=== PATIENT | female | born 1940 | race Caucasian/White ===

== ENCOUNTER 2023-06-30 09:15 | Day surgery (SDC) | payer MEDICARE, SELFPAY ==
--- NOTE | 2023-06-30 | LES_PTH ---
PATIENT: ADAN WADE LOC: [facility] – [place] U#:[id number] AGE/SX: 82/F ROOM: RE06/30/[address]: Dr. Barbara Judge MD : 1940 BED: DIS: 06/30/2023 SPEC #: [id number] RECD: 06/30/23 11:42 STATUS: JUAN REIrish #: [id number] TRACEY: 06/30/23 00:[address]: Barbara Judge DEPT: SURGICAL PATHOLOGY RECD BY: Rayne Osullivan ENTERED: 06/30/23 12:41 SP TYPE: Lesion OTHR DR: Dr. 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 Skin lesion of jawline, excision: Squamous cell carcinoma excised in the planes examined. AM:tommy 06/30/2023 Case has been reviewed in consultation with Dr. Rausch who concurs with the above diagnosis. IDC:ASHUTOSH MICROSCOPIC DIAGNOSIS A. Skin lesion of jawline, excisional biopsy: Invasive moderately differentiated squamous cell carcinoma, completely excised. Extensive solar elastosis. See comment. B. Lesion right shoulder, excisional biopsy: Actinic keratosis with mild atypia with verrucous and seborrheic keratosis-like features, completely excised in the planes of sections examined. SJ:tommy 07/04/2023 COMMENT A. The tumor measures 0.5 x 0.2 cm (measured microscopically). It is <0.1 cm away from the closest deep margin. Focal perineural invasion is noted. Please make reference to previous specimen from [facility] ([id number]), right lower jaw with diagnosis of poorly differentiated carcinoma. MICROSCOPIC DESCRIPTION Slides are reviewed. GROSS DESCRIPTION A - Received fresh for frozen section diagnosis oriented on a gauze piece labeled with the patient's name is a specimen designated squamous cell carcinoma right jawline. The specimen consists of an ovoid piece of skin measuring 1.9 x 1.3 x 0.2 cm. The specimen is inked as follows: 12 to 3 o'clock - black, 3 to 6 o'clock - blue, 6 to 9 o'clock - green and 9 to 12 o'clock - yellow. The specimen is serially sectioned and submitted entirely for frozen section diagnosis in two cassettes. / ASHUTOSH:tommy 06/30/2023 B - Received in fixative is one container labeled with the patient's name and designated lesion right shoulder. The specimen consists of a piece of meraz-white skin measuring 0.6 x 0.5 x 0.3 cm. The specimen is inked, bisected and submitted entirely in one cassette. / ASHUTOSH:tommy 06/30/2023 TC:0 CPT: 97998 x2, 87468, 39416
[2023-06-30 09:36] VITALS: BP 103/76; PULSE 71; RESP 14; TEMP 36.8; O2SAT 96; BMI 27.1
[2023-06-30 10:49] VITALS: BP 120/70
--- NOTE | 2023-06-30 10:53 | PCM.HP.BLA ---
History and Physical Date of Admission: 06/30/23 The patient is examined and there are no changes to the H&P dated 06/13/23. She presents with a biopsy proven SCC of the right jawline and a lesion of her right shoulder. 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 Excision lesion right shoulder.
[2023-06-30 11:04] VITALS: BP 92/57; BP 92/58; O2SAT 94; O2SAT 96
[2023-06-30 11:27] VITALS: BP 92/57; BP 92/58; O2SAT 94; O2SAT 95; O2SAT 96; O2SAT 97
--- NOTE | 2023-06-30 12:05 | DCINST_ITS ---
Discharge Instructions Dressing / Incision Additional Dressing/Incision Instructions:: Keep your head elevated (recliner position) for the next 2-3 nights to reduce swelling and bruising. Take the oral antibiotic (Keflex) 2 x a day until finished. Try to keep the paper tape dry. Leave them intact until seen in the office. If the tape falls off, apply and change a bandaid daily. Follow Up Care Please Follow Up With: Barbara Judge MD When: in 1-2 weeks. Test Results: Test results from this visit will be discussed in further detail at your follow- up appointment, if applicable. Discharge Plan Admission Attending Provider: Barbara Judge Primary Care Provider: Gena Redd Discharge Orders/Prescriptions Prescriptions: New cephalexin 500 mg capsule 500 mg PO BID Qty: 10 0RF No Action clopidogrel 75 mg tablet 75 mg PO DAILY levothyroxine 75 mcg capsule 75 mcg PO DAILY pantoprazole 20 mg tablet,delayed release (DR/EC) 20 mg PO DAILY Januvia 50 mg tablet 50 mg PO DAILY alendronate [Fosamax] 70 mg tablet 70 mg PO QWEEK tolterodine 4 mg capsule,extended release 24hr 4 mg PO DAILY magnesium oxide 400 mg magnesium tablet 400 mg PO DAILY levetiracetam 500 mg tablet 500 mg PO BID psyllium husk [Fiber (psyllium husk)] 0.4 gram capsule 0.4 g PO DAILY carvedilol 6.25 mg tablet 6.25 mg PO BID Rx Instructions: must administer with a meal/food duloxetine 30 mg capsule,delayed release(DR/EC) 30 mg PO DAILY spironolactone 25 mg tablet 25 mg PO DAILY isosorbide mononitrate 30 mg tablet extended release 24 hr 30 mg PO DAILY multivitamin Tablet 1 tab PO DAILY ferrous sulfate 325 mg (65 mg iron) tablet 325 mg PO DAILY aspirin [Aspirin Childrens] 81 mg tablet,chewable 81 mg PO DAILY cetirizine 10 mg tablet 10 mg PO DAILY PRN atorvastatin 40 mg tablet 40 mg PO DAILY temazepam 30 mg capsule 30 mg PO QHS PRN insulin glargine [Basaglar KwikPen U-100 Insulin] 100 unit/mL (3 mL) insulin pen 10 unit subcut QPM lidocaine 5 % adhesive patch,medicated 1 patch topical DAILY Rx Instructions: leave on most painful area for up to 12 hrs nitroglycerin 0.2 mg/hr patch 24 hour 1 patch transdermal DAILY Rx Instructions: allow nitrate-free interval of approx. 10-12 hrs per 24-hour period Trelegy Ellipta 200-62.5-25 mcg blister with device 1 inh inhalation DAILY Referrals / Follow Up: Gena Redd MD [Primary Care Provider] - Disposition Disposition (needs filled in before D/C Order can be placed): Home, Self Care
--- NOTE | 2023-06-30 12:10 | PCM.OPRPT ---
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 Silva has a biopsy-proven SCC of the right jawline. She also has a hyperkeratotic lesion of the right shoulder. She presents for excision of the SCC with frozen section to assure complete excision as well as excision of the lesion of the right shoulder. The patient was brought to the operating room and placed on the operating room table in a slightly left lateral decubitus position. The right jawline and right shoulder are prepped and draped in the usual sterile fashion. 1% Xylocaine with epinephrine is used for local anesthetic. Following this, the SCC is excised and passed off the operative field maintaining orientation for pathology. Hemostasis is controlled with cautery. Pathology frozen section reveals clear margins and therefore the wound is closed with a running chromic suture. We then directed our attention to the lesion of the right shoulder and after this is anesthetized with 1% Xylocaine with epinephrine, the site is excised and passed off the operative field to be sent to pathology for permanent section. Hemostasis is controlled with cautery. The incision is then closed with a running chromic suture. Dermabond and Steri-Strips are placed on both sides. She tolerated the procedure well was taken to the recovery area in an awake and stable condition. Needle and sponge counts are correct. Complications None Admit VTE Documentation VTE Mechan Device Prophylaxis: None Reason prophylaxis not ordered:: Treatment Not Indicated
[2023-06-30 12:16] VITALS: BP 112/69; PULSE 66; RESP 16; TEMP 36.2; O2SAT 95
== END 2023-06-30 12:39 | disposition home or self-care (01) ==
LOC: SDC 09:17 → AC 09:21
PROVIDERS: PCP Family Medicine; Referring Provider Family Medicine; Visit Provider Plastic Surgery
PROC: (CPT 11643; principal; 2023-06-30 10:30)
DX: C44.329 Squamous cell carcinoma of skin of other parts of face (principal); D48.5 Neoplasm of uncertain behavior of skin; L57.0 Actinic keratosis; L82.1 Other seborrheic keratosis
CPT/HCPCS: 11643; 11401; 88305; 88331; 88332

== ENCOUNTER 2023-08-11 09:22 | Day surgery (SDC) | payer MEDICARE, SELFPAY ==
--- NOTE | 2023-08-11 | LES_PTH ---
PATHOLOGY RESULTS PATIENT: ADAN WADE LOC: [facility] – [place] U#:[id number] AGE/SX: 82/F ROOM: RE08/11/[address]: Dr. Barbara Judge MD : 1940 BED: DIS: 08/11/2023 SPEC #: [id number] RECD: 08/11/23 12:30 STATUS: FABIANAJuancarlos CAMACHO #: [id number] TRACEY: 08/11/23 00:[address]: Barbara Judge DEPT: SURGICAL PATHOLOGY RECD BY: Rayne Osullivan ENTERED: 08/11/23 13:22 SP TYPE: Lesion Tissues: Skin of face, NOS Procedures: Frozen Section (charge) Frozen Section [facility]) Surgery Specimen Level IV HEADER OPERATION: Excision squamous cell carcinoma right jaw with frozen section PRE-OP DIAGNOSIS: Squamous cell carcinoma right jaw TISSUE SUBMITTED: Squamous cell carcinoma right jaw FROZEN SECTION DIAGNOSIS Right jaw lesion, excisional biopsy: Margins are free of tumor. ASHUTOSH:tommy 08/11/2023 Case has been reviewed in consultation with Dr. Ortiz who concurs with the above diagnosis. IDC:AM MICROSCOPIC DIAGNOSIS Right jaw lesion, excisional biopsy: Negative for residual carcinoma. Fibrosis and foreign body giant cell reaction consistent with previous biopsy site. Margins are free of tumor. SJ:tommy 08/14/2023 COMMENT Please make reference to previous specimen ([id number]), skin lesion of jawline, excisional biopsy with diagnosis of invasive moderately differentiated squamous cell carcinoma and lesion right shoulder, excisional biopsy with diagnosis of actinic keratosis with mild atypia with verrucous and seborrheic keratosis-like features. MICROSCOPIC DESCRIPTION Slides are reviewed. GROSS DESCRIPTION Received fresh for frozen section diagnosis labeled with the patient's name is a specimen designated squamous cell carcinoma right jaw. The specimen consists of a piece of meraz-white skin oriented on a gauze piece measuring 3.0 x 0.8 x 0.3 cm. The specimen is inked as follows: 12 o'clock - black, 6 o'clock - blue, 3 o'clock - green and 9 o'clock - yellow. The specimen is serially sectioned and submitted entirely for frozen section diagnosis in three cassettes as follows: 1 - 3 and 9 o'clock margin, 2 & 3 - rest of the specimen. / ASHUTOSH:tommy 08/11/2023 TC:5 CPT: 88075, 87724, 72353 x2
[2023-08-11 09:49] VITALS: BP 107/74; PULSE 65; RESP 16; TEMP 36.6; O2SAT 16; BMI 26.3
--- NOTE | 2023-08-11 11:33 | PCM.HP.BLA ---
History and Physical Date of Admission: 08/11/23 The patient presents with a history of an SCC of the right jaw. Previous excision revealed margins of less than 1 mm. She presents for reexcision to assure clear margins. 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
[2023-08-11 12:01] VITALS: BP 104/72; BP 107/78; O2SAT 92; O2SAT 93; O2SAT 94; O2SAT 95
[2023-08-11] MEDS: Lidocaine 1% /Epi 1:100 9 ML, Sodium Bicarbonate 1 MEQ OPERA.SITE (12:13)
--- NOTE | 2023-08-11 12:51 | DCINST_ITS ---
Discharge Instructions Dressing / Incision Additional Dressing/Incision Instructions:: Keep tape dry. Keep your back elevated (recliner position) for 3-4 nights to prevent bruising and swelling. Take the oral antibiotic (Keflex) 2 times a day until finished Follow Up Care Please Follow Up With: Barbara Judge MD When: in 1-2 weeks Test Results: Test results from this visit will be discussed in further detail at your follow- up appointment, if applicable. Discharge Plan Admission Attending Provider: Barbara Judge Primary Care Provider: Gena Redd Discharge Orders/Prescriptions Prescriptions: New cephalexin 500 mg capsule 500 mg PO BID 7 Days Qty: 14 0RF No Action clopidogrel 75 mg tablet 75 mg PO DAILY levothyroxine 75 mcg capsule 75 mcg PO DAILY pantoprazole 20 mg tablet,delayed release (DR/EC) 20 mg PO DAILY Januvia 50 mg tablet 50 mg PO DAILY alendronate [Fosamax] 70 mg tablet 70 mg PO QWEEK tolterodine 4 mg capsule,extended release 24hr 4 mg PO DAILY magnesium oxide 400 mg magnesium tablet 400 mg PO DAILY levetiracetam 500 mg tablet 500 mg PO BID psyllium husk [Fiber (psyllium husk)] 0.4 gram capsule 0.4 g PO DAILY carvedilol 6.25 mg tablet 6.25 mg PO BID Rx Instructions: must administer with a meal/food duloxetine 30 mg capsule,delayed release(DR/EC) 30 mg PO DAILY spironolactone 25 mg tablet 25 mg PO DAILY isosorbide mononitrate 30 mg tablet extended release 24 hr 30 mg PO DAILY multivitamin Tablet 1 tab PO DAILY ferrous sulfate 325 mg (65 mg iron) tablet 325 mg PO DAILY aspirin [Aspirin Childrens] 81 mg tablet,chewable 81 mg PO DAILY cetirizine 10 mg tablet 10 mg PO DAILY PRN (Reason: allergy symptoms) atorvastatin 40 mg tablet 40 mg PO DAILY temazepam 30 mg capsule 30 mg PO QHS PRN (Reason: sleep) insulin glargine [Basaglar KwikPen U-100 Insulin] 100 unit/mL (3 mL) insulin pen 10 unit subcut QPM lidocaine 5 % adhesive patch,medicated 1 patch topical DAILY Rx Instructions: leave on most painful area for up to 12 hrs nitroglycerin 0.2 mg/hr patch 24 hour 1 patch transdermal DAILY Rx Instructions: allow nitrate-free interval of approx. 10-12 hrs per 24-hour period Trelegy Ellipta 200-62.5-25 mcg blister with device 1 inh inhalation DAILY cephalexin 500 mg capsule 500 mg PO BID Qty: 10 0RF Referrals / Follow Up: Gena Redd MD [Primary Care Provider] - Disposition Disposition (needs filled in before D/C Order can be placed): Home, Self Care
--- NOTE | 2023-08-11 12:54 | PCM.OPRPT ---
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 This had been removed however the margin was less than 1 mm. She presents for additional excision to assure clear margins. The patient is brought to the operating room and placed on the operating room table in the supine position. The right face is prepped and draped in the usual sterile fashion. 1% Xylocaine with epinephrine is used for local anesthetic. Following this, the site is excised with orientation maintained for pathology frozen section. Hemostasis is controlled with cautery. Frozen section returned as clear margins and therefore the wound is closed. A combination of interrupted and running chromic suture was used to approximate skin edges. Dermabond and Steri-Strips were used for dressing. She tolerated the procedure well was taken to the recovery area in an awake and stable condition. Needle and sponge counts are correct. Complications None Admit VTE Documentation VTE Mechan Device Prophylaxis: None Reason prophylaxis not ordered:: Treatment Not Indicated
[2023-08-11 13:05] VITALS: BP 107/74; BP 116/74; PULSE 62; RESP 16; TEMP 36.2; O2SAT 97
== END 2023-08-11 13:17 | disposition home or self-care (01) ==
LOC: SDC 09:24 → AC 09:25
PROVIDERS: PCP Family Medicine; Referring Provider Plastic Surgery; Visit Provider Plastic Surgery
PROC: (CPT 11640; principal; 2023-08-11 10:45)
DX: C44.320 Squamous cell carcinoma of skin of unspecified parts of face (principal); I50.9 Heart failure, unspecified; E11.22 Type 2 diabetes mellitus with diabetic chronic kidney disease; Z79.4 Long term (current) use of insulin; Z79.82 Long term (current) use of aspirin; Z79.899 Other long term (current) drug therapy; Z79.890 Hormone replacement therapy; E78.00 Pure hypercholesterolemia, unspecified; N18.9 Chronic kidney disease, unspecified; D63.1 Anemia in chronic kidney disease
CPT/HCPCS: 11640; 88305; 88331; 88332